=== PATIENT | female | born 1940 | race Caucasian/White ===

== ENCOUNTER 2016-11-03 06:14 | Day surgery (SDC) | payer MEDICARE ==
[2016-11-03] VITALS (11 sets, daily range): BP systolic 119–151; BP diastolic 80–90; PULSE 63–106; RESP 17–22; TEMP 97.6–98.2; O2SAT 94–100
[~2016-11-03] VITALS: Ht 160 cm; Wt 74.1 kg
[2016-11-03] MEDS ORDERED: ONCETAB7 PO (07:08)
[2016-11-03] MEDS ORDERED: HYDR-3288 PO (07:08)
[2016-11-03] MEDS ORDERED: OCUVTAB4 PO (07:08)
[2016-11-03] MEDS ORDERED: METO50TA11 PO (07:08)
[2016-11-03] MEDS ORDERED: PRAV20TA2 PO (07:08)
[2016-11-03] MEDS ORDERED: XARE20TA PO (07:08)
[2016-11-03] MEDS ORDERED: TRIA37.53 PO (07:08)
[2016-11-03] MEDS ORDERED: HYDR12.57 PO (07:08)
[2016-11-03] MEDS ORDERED: COQ-50CA2 PO (07:09)
[2016-11-03 07:15] LABS: AUTOMATED NEUTROPHIL # 2.7 TH/MM3 (1.8-7.7); BASOPHIL # 0.1 TH/MM3 (0-0.2); BASOPHIL % 0.9 % (0.0-2.0); EOSINOPHIL # 0.4 TH/MM3 (0-0.4); EOSINOPHIL % 6.3 % (0.0-4.0); HEMATOCRIT 43.1 % (35.0-46.0); HEMO FLAGS DIFF FINAL; LYMPH % 40.5 % (9.0-44.0); LYMPHOCYTE # 2.6 TH/MM3 (1.0-4.8); MEAN CELL VOLUME 91.6 FL (80.0-100.0); MEAN CORPUSCULAR HEMOGLOBIN 30.8 PG (27.0-34.0); MEAN CORPUSCULAR HGB CONC 33.6 % (32.0-36.0); MONO % 9.4 % (0.0-8.0); NEUT % 42.9 % (16.0-70.0); PLATELET COUNT 245 TH/MM3 (150-450); RED BLOOD COUNT 4.71 MIL/MM3 (4.00-5.30); RED CELL DISTRIBUTION WIDTH 13.1 % (11.6-17.2); WHITE BLOOD COUNT 6.4 TH/MM3 (4.0-11.0)
[2016-11-03 07:28] LABS: BICARBONATE 23.8 MEQ/L (21.0-32.0); POTASSIUM 3.3 MEQ/L (3.5-5.1)
[2016-11-03 07:29] LABS: APTT (PATIENT) 30.5 SEC (24.3-30.1); PROTHROMBIN TIME - PATIENT 11.5 SEC (9.8-11.6)
[2016-11-03] MEDS ORDERED: HEPARIN-NS/PF INJ 2,000 ML ONE (07:31)
[2016-11-03] MEDS ORDERED: ISOPROTERENOL HCL 1 MG/5 ML AMP ONE (07:34)
[2016-11-03] MEDS ORDERED: MIDAZOLAM HCL 2 MG/2 ML VIAL ONE (07:35)
[2016-11-03] MEDS ORDERED: METOPROLOL TARTRATE 25 MG TAB PO PRN (08:30)
[2016-11-03] MEDS ORDERED: LORazepam 1 MG TAB SL SCH (08:30)
[2016-11-03] MEDS ORDERED: CHLORHEXIDINE GLUCONATE 2 % 1 PACK (2 CLOTHS) TOPICAL PRN (08:30)
[2016-11-03] MEDS ORDERED: POVIDONE IODINE 5% (ANTISEPSIS KIT) 4 APPLICATIONS EACH NARE PRN (08:30)
[2016-11-03] MEDS ORDERED: LACTATED RINGER'S 1000 ML IV PRN (08:30)
[2016-11-03] MEDS ORDERED: SODIUM CHLORID 0.9% 500 ML IV PRN (08:30)
[2016-11-03] MEDS ORDERED: INSULIN HUMAN REGULAR 1,000 UNITS/10 ML VIAL SQ PRN (08:30)
--- NOTE | 2016-11-03 08:46 | CATHPROC ---
[facility] A/S HIS Report Study Information Study Number Admission Scheduled Start Study Start [id number] Nov 03 2016 6:14AM 11/03/2016 Nov 03 2016 6:54AM [place] [facility] Electrophysiology Study Admit Source Facility Department Other [facility] - Quality Control Engineering Technician Physician and Clinical Staff Initial Lisandro Good Baler Anali Riley,RT(R) Baler Alicia Wiggins,RT(R) TECH2 Other Anesthesia, RHEOLOGIST Recorder Susana Doran,CANELO Recorder Ritu Mullins,JORDANRN Scrub Leslie Feng,ZANE Procedures Performed Procedure Ablation Procedure Equipment Time Registered Nurse Post Partum Description Size Mfg Part Number Used/Scraped BIOSENSE KATE CATHETER, CELSIUS DS, 8MM, F [id number] 06:57 FR 7 Used INC. TYPE QUAD *[id number] 06:55 [employer] PACK, CCL CUSTOM * Used *[id number] 06:55 or[employer]ics PACER BETANCOURT, LIMB * 2530 *[id number] Used [id number] 06:55 [employer] MEDICAL BLANKET,WARM AIR CCL * Used *[id number] 06:56 [employer] MEDICAL CATHETER, JSN, QUAD FR 5 Used *[id number] 06:56 [employer] MEDICAL CATHETER, JSN, QUAD FR 5 Used *[id number] 06:56 [employer] MEDICAL CATHETER, JSN, QUAD FR 5 Used *[id number] 06:56 [employer] MEDICAL CATHETER, JSN, QUAD FR 5 Used *[id number] 06:55 [employer]EE[employer] MEDICAL ELECTRODE KIT, KD X SURFACE * [id number] Used [id number] 06:56 [employer] MEDICAL SHEATH, EPS, FR5 FAST CATH FR 5 Used *[id number] [id number] 06:56 [employer] MEDICAL SHEATH, EPS, FR5 FAST CATH FR 5 Used *[id number] [id number] 06:56 [employer] MEDICAL SHEATH, EPS, FR5 FAST CATH FR 5 Used *[id number] 06:56 [employer] MEDICAL SHEATH, EPS, FR6 FAST CATH FR [id number] Used 06:56 [employer] MEDICAL SHEATH, EPS, FR8 FAST CATH FR 8 [id number] Used [facility] PAD, ELECTROSURGICAL 06:55 * [id number] *[id number] Used SURGICAL GROUNDING (BLUE) History: Allergies Allergy Reaction Sulfa (Sulfonamide Antibiotics) ITCH peanut soybean SWELLING History: Risk Factors Hypertension Dyslipidemia Yes Yes Labs Hgb (g/dl) Hct (%) RBC (MIL/MM3) WBC (l/cumm) Platelets (thousands) 11.60-17.00 35.00-51.00 4.00-5.90 4.00-11.00 150.00-450.00 14.0 43 4.1 6.4 245 Glucose (mg/dl) Creatinine (mg/dl) 74.00-106.00 0.50-1.30 103 0.9 Na (meq/l) K (meq/l) Cl (meq/l) CO2 (mmol/L) Ca (mg/dl) 136.00-145.00 3.50-5.10 98.00-107.00 21.00-32.00 8.50-10.10 132 3.3 95 23.8 9 Medication Medication Total Dose (Bolus/Oral) Medication Total Dosage/Unit 1% XYLOCAINE 40 mL Medications (Bolus/Oral) Medication Time Given Dosage/Unit Administered By Reason 1% XYLOCAINE 11/03/2016 8:13:02 AM 20 mL Lisandro Manuel For pain 20 mL 1% XYLOCAINE given in lab by Lisandro Manuel in Left Groin via Subcutaneous. Ordered by Jasmeet Manuel. Reason: For pain. 1% XYLOCAINE 11/03/2016 8:17:49 AM 20 mL Lisandro Manuel For pain 20 mL 1% XYLOCAINE given in lab by Lisandro Manuel in Right Groin via Subcutaneous. Ordered by Xochitl Manuel. Reason: For pain. Medication (Drip) Medication Time Given Dosage/Unit Concentration/Unit Diluent (ml) Solution ISUPREL 11/03/2016 8:30:00 AM 10 mcg/min 1 mg 250 NaCl .9 10 mcg/min ISUPREL given in lab by Anesthesia, RHEOLOGIST in Right Antecubital via Peripheral IV. Pump/Drip Flow = 150 ml/hr using NaCl .9 with a concentration of 1 mg in 250 ml. Ordered by Lisandro Manuel. Initial Case Assessment Cardiovascular HR NIBP Chest Pain 60 144/69 0 Edema Present Skin color Skin None Normal Warm Dry Circulatory - Right Pulses Dorsalis Pedis 2 Scale (0,1,2,3,4,d) Circulatory - Left Pulses Dorsalis Pedis 2 Scale (0,1,2,3,4,d) Neurological State Oriented to time-place- Alert Moves all extremities person Respiration - General Respiration Rate SpO2 (%) (B/min) 18 94 Final Case Assessment Cardiovascular HR NIBP Chest Pain 88 113/69 0 Edema Present Skin color Skin None Normal Warm Dry Circulatory - Right Pulses Dorsalis Pedis 2 Scale (0,1,2,3,4,d) Circulatory - Left Pulses Dorsalis Pedis 2 Scale (0,1,2,3,4,d) Neurological State Oriented to time-place- Alert Moves all extremities person Respiration - General Respiration Rate SpO2 (%) (B/min) 20 96 Chronological Log Time Study Chronological Log 7:25:52 Patient arrived via Bed. 7:25:53 Patient Name, D.O.B, / Armband Verified By R.N. 7:25:53 Consent signed by the physician and the patient and verified by the Quality Control Engineering Technician staff. 7:25:54 Pre-op and post- op instructions given; patient acknowledges understanding of instructions. 7:25:54 Verbal Stimulation=2 Physical Stimulation=2 Airway=2 Respiration=2 TOTAL=8. (0=absent, 1=li mited, 2=present) 7:26:04 Anesthesia at bedside. Assumes care of patient. Jeff RHEOLOGIST 7:26:05 Patient has been NPO for More than 6Hrs. 7:26:06 Skin Breakdown- none per pt 7:26:13 Patient Warmer Placed on the Table. 7:26:13 Disposable Defibrillator Pads Placed On Patient. 7:26:14 Kay Prominences Protected 7:26:16 A # 20 IV was noted in the Antecubital (right). Grade = 0 0.9ns kvo 7:26:17 A # 20 IV was noted in the Antecubital (left). Grade = 0 0.9ns kvo 7:26:20 History and physical on the chart. Assessment: Initial Case, HR=60 BPM, SHWV=628/69 mmhg, Chest Pain=0, Edema=None, Color=Normal, Skin = Warm, Dry Right Pulses: Etienne Ped=2 7:27:00 Left Pulses: Etienne Ped=2 Neurological: State=Alert, Ox3, VELASQUEZ Respiration: Resp=18 B/min, SpO2=94 % 7:33:53 Table restraints applied according to hospital policy 7:40:53 Right groin prepped with 2% chlorhexidine, and with a 3 min. waiting time. 7:40:58 Left groin prepped with 2% chlorhexidine, and with a 3 min. waiting time. 7:57:27 Reference ECG taken 7:58:00 MD paged 8:08:38 MD arrived. 8:08:45 Immediate Presedation assesment performed by physician. Time Out. Correct patient, procedure, procedure equipment, site and side verified with physician present. Time 8:12:16 concurred by MD, individual staff and RHEOLOGIST. Time Out #2 - Consents verified, patient in correct position, all results are labled and display ed, safety precautions 8:12:19 taken, antibiotics administered. Time out concurred by MD, individual staff and RHEOLOGIST in procedur e 8:12:21 Case Start 20 mL 1% XYLOCAINE given in lab by Lisandro Manuel in Left Groin via Subcutaneous. Ordered by Lisandro Duran. 8:13:02 Reason: For pain. 8:13:48 Vascular access was obtained in the Fem Vein (left). 8:13:53 Vascular access was obtained in the Fem Vein (left). 8:13:54 Vascular access was obtained in the Fem Vein (left). 8:13:59 A SHEATH, EPS, FR5 FAST CATH FR 5 was advanced into the Fem Vein (left) using the Percutaneo us technique. 8:14:10 A SHEATH, EPS, FR5 FAST CATH FR 5 was advanced into the Fem Vein (left) using the Percutaneo us technique. 8:14:11 A SHEATH, EPS, FR5 FAST CATH FR 5 was advanced into the Fem Vein (left) using the Percutaneo us technique. 20 mL 1% XYLOCAINE given in lab by Lisandro Manuel in Right Groin via Subcutaneous. Ordered by Lisandro Quijano. 8:17:49 Reason: For pain. 8:18:00 Vascular access was obtained in the Fem Vein (right). 8:18:04 Vascular access was obtained in the Fem Vein (right). 8:18:09 A SHEATH, EPS, FR6 FAST CATH FR 6 was advanced into the Fem Vein (right) using the Percutane ous technique. 8:18:17 A SHEATH, EPS, FR8 FAST CATH FR 8 was advanced into the Fem Vein (right) using the Percutane ous technique. A CATHETER, JSN, QUAD FR 5 was advanced vis Fem Vein (left) and placed in the HIS. Placement was visually 8:19:04 confirmed under fluoroscopy. A CATHETER, JSN, QUAD FR 5 was advanced vis Fem Vein (left) and placed in the HRA. Placement was visually 8:19:18 confirmed under fluoroscopy. A CATHETER, JSN, QUAD FR 5 was advanced vis Fem Vein (left) and placed in the RVA. Placement was visually 8:19:30 confirmed under fluoroscopy. A CATHETER, JSN, QUAD FR 5 was advanced vis Fem Vein (right) and placed in the CS. Placement was visually 8:19:46 confirmed under fluoroscopy. A CATHETER, KEAGANUS DS, 8MM, F TYPE QUAD FR 7 was advanced vis Fem Vein (right) and placed in th e Isthmus. 8:23:38 Placement was visually confirmed under fluoroscopy. 8:24:30 Ablation begun. 8:29:00 Ablation completed. 10 mcg/min ISUPREL given in lab by Anesthesia, RHEOLOGIST in Right Antecubital via Peripheral IV. Pump /Drip Flow = 150 8:30:00 ml/hr using NaCl .9 with a concentration of 1 mg in 250 ml. Ordered by Lisandro Manuel. 8:39:12 Isuprel gtt turned off. 8:39:36 Catheters removed. 8:40:[address] hooked to saline. 8:40:40 Ablation procedure performed: Aflutter. 8:40:49 EP Procedure was performed. 8:41:07 Sterile dressing applied to site 8:41:45 No case complications noted. 8:41:47 Cine recording checked. 8:41:50 Holding Area notified of successful intervention. 8:41:52 Bedside Report will be given. 8:41:55 Defibrillator and ground pads removed. Skin intact. Assessment: Final Case, HR=88 BPM, HNAV=381/69 mmhg, Chest Pain=0, Edema=None, Color=Normal, S kin = Warm, Dry Right Pulses: Etienne Ped=2 8:42:06 Left Pulses: Etienne Ped=2 Neurological: State=Alert, Ox3, VELASQUEZ Respiration: Resp=20 B/min, SpO2=96 % 8:42:30 Case End 8:55:00 Patient moved to stretcher and transported to [facility] in stable condition. End Study - Contrast Media Used In Study Contrast Total Opened (mL) Total Used (mL) Total Wasted (mL) Unspecified 0 0 0 End Study - Maximum Contrast Load Max Contrast Load (mL) 410.6 End Study - Radiation Exposure Fluoro Time (minutes) 1.8 End Study - Patient Disposition Complications Transferred To Interventional Outcome No Telemetry Bed successful
[2016-11-03] MEDS ORDERED: BACITRACIN OINT 0.9 GM PKT TOP ONE (10:15)
[2016-11-03] MEDS ORDERED: LIDOCAINE HCL 1% 50 ML VIAL INFIL PRN (10:15)
[2016-11-03] MEDS ORDERED: ONDANSETRON HCL 4 MG/2 ML VIAL IV PRN (10:15)
[2016-11-03] MEDS ORDERED: ATROPINE SULFATE 1 MG/ML VIAL IV PRN (10:15)
[2016-11-03] MEDS ORDERED: METOCLOPRAMIDE HCL 10 MG/2 ML VIAL IV PRN (10:15)
[2016-11-03] MEDS ORDERED: LORazepam 2 MG/ML VIAL IV PRN (10:15)
[2016-11-03] MEDS ORDERED: oxyCODONE/ACETAMINOPHEN 5 MG/325 MG TAB PO PRN (10:15)
[2016-11-03] MEDS ORDERED: SODIUM CHLOR 0.9% 250 ML INJ 250 ML IV PRN (10:15)
--- NOTE | 2016-11-03 12:43 | MA ---
cc: RONAL GILLETTE M.D. DATE 11/03/2016 PROCEDURE PERFORMED Electrophysiology study, CS cannulation, 3-D mapping, radiofrequency ablation of atrial flutter. INDICATIONS Mrs. Euceda is a 75-year-old female with atrial fibrillation symptomatic on anticoagulation referred for electrophysiology study and ablation. The risks, the nature and the benefit of the procedure are clearly stated to her. The risks include pneumothorax, cardiac perforation, stroke, need for open heart surgery and even . The patient understood and agreed to proceed. PROCEDURE After written informed consent was obtained, the patient was brought to the EP lab where she was prepped and draped in the usual sterile fashion. Conscious sedation was initiated and maintained throughout the procedure by anesthesiologist. Once sedation verified, the right and left inguinal area was anesthetized with 2% Xylocaine. Using modified Seldinger technique, the left femoral vein was cannulated on three occasions and three guidewires were advanced over the wire. Three 5-Nigerian Hemaquets were advanced. Then the right femoral vein was cannulated on two occasions and two guidewire were advanced over the wire, a 6 and an 8-Nigerian Hemaquet were advanced. Then under fluoroscopic guidance through the 5 and 6-Nigerian Hemaquet, four 5-Nigerian Les curved quadripolar electrophysiology catheters were advanced and positioned on the His, upper right atrium, coronary sinus and right ventricular apex. The patient was in atrial flutter. was performed. It was positive. Then through the 8-Nigerian Hemaquet, a Cordis Dubois F curve 8 mm mapping radiofrequency ablation catheter was advanced. Using [employer] endocardial solution mapping system, a two-dimensional configuration of the right atrium was obtained. Then the catheter was at the critical isthmus. Radiofrequency energy was delivered. During ablation, cycle length increased from 240-275 and subsequently the patient converted into sinus rhythm. Further burn was delivered in the area. Then atrial pacing protocol was repeated again. No tachyarrhythmia was induced. I did pace at the proximal pole of the coronary sinus up to 220 milliseconds. No tachyarrhythmia was induced. Then Isuprel was initiated. Atrial pacing protocol was repeated again. No tachyarrhythmia was induced. Post Isuprel, no tachyarrhythmia was induced. At that point, procedure was complete. All catheters were removed. The patient is going to be transferred to the recovery room. No incident report. The patient tolerated procedure. Blood loss minimal. 1. Electrocardiogram: At baseline, the patient was in atrial Flutter. Postprocedure, the patient is in sinus rhythm. 2. Basic interval: Base cycle length was 780 milliseconds. Fluttery cycle length was around 240 milliseconds. Post ablation it was around 980 milliseconds. 3. Atrial pacing protocol: No tachyarrhythmia was induced post Ablation. 4. Ventricular pacing protocol: No tachyarrhythmia was induced. 5. Tachyarrhythmia: Atrial flutter was mapped, entrained and ablated. Ablation was successful. CONCLUSION Successful electrophysiology study, mapping and radiofrequency ablation of atrial flutter. COMMENT AND RECOMMENDATIONS The patient is going to be transferred to the recovery room. He will be observed and when stable can be discharged home. MD CRISTOPHER Valdez/VALDEZ /11:58 AM /12:29 PM
[2016-11-03] MEDS: oxyCODONE/ACETAMINOPHEN 5 MG/325 MG TAB PO PRN ×3 (14:16→23:03)
--- NOTE | 2016-11-03 15:07 | EKG ---
Date Performed: 11/03/2016 Time Performed: 07:03:22 PTAGE: 75 years EKG: Atrial flutter with slow ventricular response. Septal T wave changes are nonspecific Low QR S voltages in precordial leads Abnormal ECG NO PREVIOUS TRACING DOCTOR: Honey Jay Interpretating Date/Time 11/03/2016 15:07:35
[2016-11-03] MEDS ORDERED: HYDROmorphone HCL PF 1 MG/ML VIAL IV PUSH ONE (16:00)
[2016-11-03] MEDS: RIVAROXABAN 20 MG TAB PO SCH (18:11)
[2016-11-03] MEDS: TRIAMTERENE/HCTZ 37.5 MG/25 MG CAP PO SCH (21:22)
[2016-11-04] VITALS (21 sets, daily range): BP systolic 101–152; BP diastolic 62–89; PULSE 88–110; RESP 18–20; TEMP 97.9–100.2; O2SAT 92–99
[2016-11-04] MEDS: oxyCODONE/ACETAMINOPHEN 5 MG/325 MG TAB PO PRN ×3 (03:40→11:57)
[2016-11-04 07:07] LABS: INTERNATIONAL NORMALIZED RATIO 1.5 RATIO; PROTHROMBIN TIME - PATIENT 17.4 SEC (9.8-11.6)
--- NOTE | 2016-11-04 08:43 | PD.CARD.PN ---
Subjective Subjective Remarks Feels okay. Objective Medications Current Medications Medications (Trade) Dose Ordered Sig/Gabby Route Start Time Stop Time Status Last Admin Lactated Ringer's 1,000 ml @ 30 mls/hr Q24H PRN IV 11/03/16 08:30 11/06/16 08:29 Sodium Chloride 500 ml @ 30 mls/hr [id number] PRN IV 11/03/16 08:30 11/06/16 08:29 (Lopressor) 25 mg PROBE OPERATOR PRN PO 11/03/16 08:30 11/06/16 08:29 (Betadine 5% Antisepsis Kit) 1 applic PROBE OPERATOR PRN EACH NARE 11/03/16 08:30 11/06/16 08:29 (Chlorhexidine 2% Cloth) 3 pack PROBE OPERATOR PRN TOPICAL 11/03/16 08:30 11/06/16 08:29 (NovoLIN R INJ) See Protocol Table ... PROBE OPERATOR PRN SQ 11/03/16 08:30 11/06/16 08:29 Sodium Chloride 500 ml @ 30 mls/hr [id number] IV 11/03/16 08:30 (Ativan) 1 mg PROBE OPERATOR SL 11/03/16 08:30 11/06/16 08:29 (Percocet 5-325 Mg) 1 tab Q4H PRN PO 11/03/16 10:15 (Percocet 5-325 Mg) 2 tab Q4H PRN PO 11/03/16 10:15 11/04/16 07:34 (Ativan Inj) 0.5 mg UNSCH PRN IV 11/03/16 10:15 11/04/16 10:14 (Atropine Inj) 0.5 mg UNSCH PRN IV 11/03/16 10:15 Sodium Chloride 250 ml @ 500 mls/hr ONCE PRN IV 11/03/16 10:15 11/04/16 10:14 (Reglan Inj) 10 mg Q4H PRN IV 11/03/16 10:15 (Zofran Inj) 4 mg Q4H PRN IV 11/03/16 10:15 11/04/16 07:26 (Xylocaine 1% Inj (50 ml)) 10 ml UNSCH PRN INFIL 11/03/16 10:15 11/04/16 10:14 (Toprol Xl) 50 mg DAILY PO 11/04/16 09:00 (Pravachol) 20 mg DAILY PO 11/04/16 09:00 (Xarelto) 20 mg DAILY PO 11/03/16 18:00 11/03/16 18:11 (Dyazide 37.5-25 Mg) 1 cap BID PO 11/03/16 21:00 11/03/16 21:22 (Ocuvite) 1 tab DAILY PO 11/04/16 09:00 (Theragran) 1 tab DAILY PO 11/04/16 09:00 Vital Signs / I&O Vital Signs Date Time Temp Pulse Resp B/P (MAP) Pulse Ox O2 Delivery O2 Flow Rate FiO2 11/04/16 07:23 108 20 101/63 (76) 95 11/04/16 03:46 98.6 99 20 152/85 (107) 94 11/04/16 03:00 94 11/04/16 02:00 94 11/04/16 01:00 98 11/04/16 00:00 100 11/03/16 23:03 98.0 102 20 119/80 (93) 95 11/03/16 23:00 100 11/03/16 22:00 102 11/03/16 21:00 98 11/03/16 20:00 98.2 106 22 136/81 (99) 94 11/03/16 20:00 104 11/03/16 19:00 106 11/03/16 16:00 100 18 128/83 (98) 100 11/03/16 16:00 102 11/03/16 15:00 100 11/03/16 14:33 97.6 100 20 151/84 (106) 94 11/03/16 14:30 106 11/03/16 09:26 94 Room Air I/O 11/03/16 11/03/16 11/03/16 11/04/16 11/04/16 11/04/16 07:00 15:00 23:00 07:00 15:00 23:00 Intake Total 240 ml Output Total 600 ml Balance -360 ml Intake Oral 240 ml Output Urine Total 600 ml Physical Exam GENERAL: Well-nourished, well-developed patient. SKIN: Warm and dry. Groin site soft with mild bruising at Left thigh.. HEAD: Normocephalic. EYES: No scleral icterus. No injection or drainage. NECK: Supple, trachea midline. No JVD or lymphadenopathy. CARDIOVASCULAR: Regular rate and rhythm without murmurs, gallops, or rubs. RESPIRATORY: Breath sounds equal bilaterally. No accessory muscle use. GASTROINTESTINAL: Abdomen soft, non-tender, nondistended. EXTREMITIES: No cyanosis, or edema. NEUROLOGICAL: Awake, alert, and oriented x 3. Non-focal. Laboratory Laboratory Tests Test 11/04/16 05:15 Prothrombin Time 17.4 SEC Prothromb Time International Ratio 1.5 RATIO Assessment and Plan Problem List: (1) Atrial flutter ICD Codes: I48.92 - Unspecified atrial flutter Status: Acute Plan: Normal sinus rhythm on telemetry. Continue Xarelto. (2) S/P ablation of atrial flutter ICD Codes: Z98.890 - Other specified postprocedural states; Z86.79 - Personal history of other diseases of the circulatory system Status: Resolved Plan: Remained in sinus rhythm overnight status post atrial flutter ablation. Stable for discharge home per my discussion with Dr. Manuel. Follow up with him in 3 weeks. Contact office for any questions or concerns. Addendum: After initial evaluation, patient sat up slightly and developed a recurrent left groin bleed. Discharge held, Dr. Manuel notified. He will see the patient later today. Problem Qualifiers (1) Atrial flutter: Qualified Codes: I48.3 - Typical atrial flutter Vandana Friedman Nov 04, 2016 08:43
[2016-11-04] MEDS: MULTIVITAMIN TAB PO SCH (09:00)
[2016-11-04] MEDS ORDERED: NON-FORMULARY DRUG (Coenzyme Q10 (Ubidecarenone) (Coq-10) 100 MG) PO SCH (09:00)
[2016-11-04] MEDS: RIVAROXABAN 20 MG TAB PO SCH (09:00)
[2016-11-04] MEDS: MULTIVITAMIN-OPHTHALMIC 1 TAB PO SCH (09:53)
[2016-11-04] MEDS: TRIAMTERENE/HCTZ 37.5 MG/25 MG CAP PO SCH ×2 (09:54→21:40)
[2016-11-04] MEDS: PRAVASTATIN SOD 20 MG TAB PO SCH (09:54)
[2016-11-04] MEDS: METOPROLOL SUCCINATE 50 MG EXTENDED RELEASE TAB PO SCH (09:55)
--- NOTE | 2016-11-04 11:58 | RADRPT ---
EXAM DATE/TIME: 11/04/2016 11:17 [place] COMPARISON: No previous studies available for comparison. INDICATIONS : Swelling in left groin. MEDICAL HISTORY : Hypertension. Pre-diabetic. Skin cancer. SURGICAL HISTORY : Cardiac catheterization, 11/03/16. ENCOUNTER: Initial ACUITY: 1 day PAIN SCORE: 8/10 LOCATION: Left groin. AREA EVALUATED: Left groin. FINDINGS: Large heterogeneous left groin hematoma measuring up to 12 cm in dimension. No evidence of pseudoaneu rysm. Visualized common femoral vessels are patent. CONCLUSION: Large groin hematoma. No pseudoaneurysm Lázaro Oh MD on November 04, 2016 at 11:55 Board Certified Radiologist. This report was verified electronically.
--- NOTE | 2016-11-04 12:23 | PD.VS.CON ---
History of Present Illness Chief Complaint: L groin hematoma Consult Requested by: Dr. Manuel History of Present Illness 75 yo lady with a fib who underwent procedure yesterday with cardiology EP. Overnight had pain and has persisted this morning - pain in upper leg and back. Duplex shows no PSA. Unclear access site (A/V). No motor dysfunction of L foot Past/Family/Social History Past Medical History DM A fib HTN XOL Past Surgical History ablation yesterday Social History non smoker Family History NC Home Medications Reported Medications Coenzyme Q10 (Ubidecarenone) (Coq-10) 50 Mg Cap, 100 MG PO DAILY 11/03/16 Rivaroxaban (Xarelto) 20 Mg Tab, 20 MG PO DAILY for Blood Clot Prevention, TAB 0 Refills 11/03/16 Triamterene-Hydrochlorothiazide (Triamterene-Hydrochlorothiazide) 37.5-25 Mg Cap , 1 CAP PO BID, #30 CAP 0 Refills 11/03/16 Multiple Vitamins W/ Minerals (Preservision Areds) 1 Tab, 1 TAB PO DAILY for Nutritional Supplement, TAB 0 Refills 11/03/16 Pravastatin (Pravastatin) 20 Mg Tab, 20 MG PO DAILY for Cholesterol Management, #30 TAB 0 Refills 11/03/16 Multivitamin (Once Daily) 1 Each Tablet, 1 MG PO DAILY 11/03/16 Metoprolol Succinate ER 24 HR (Metoprolol Succinate ER 24 HR) 50 Mg Tab, 50 MG PO DAILY, #30 TAB 0 Refills 11/03/16 Hydrocodone-Acetaminophen ([place]) 7.5-325 mg Tab, 1 TAB PO Q4H Y for PAIN, TAB 0 Refills 11/03/16 Hydrochlorothiazide (Hydrochlorothiazide) 12.5 Mg Cap, PO DAILY, #30 CAP 0 Refills 11/03/16 Coded Allergies: Sulfa (Sulfonamide Antibiotics) (Verified Allergy, Severe, ITCH, 11/03/16) peanut (Verified Allergy, Unknown, 11/03/16) soybean (Verified Allergy, Unknown, SWELLING, 11/03/16) Review of Systems Cardiovascular: DENIES: Chest pain Musculoskeletal: COMPLAINS OF: Back pain Physical Exam Vitals/I&O Date Time Temp Pulse Resp B/P (MAP) Pulse Ox O2 Delivery O2 Flow Rate FiO2 11/04/16 07:23 108 20 101/63 (76) 95 11/04/16 03:46 98.6 99 20 152/85 (107) 94 11/04/16 03:00 94 11/04/16 02:00 94 11/04/16 01:00 98 11/04/16 00:00 100 11/03/16 23:03 98.0 102 20 119/80 (93) 95 11/03/16 23:00 100 11/03/16 22:00 102 11/03/16 21:00 98 11/03/16 20:00 98.2 106 22 136/81 (99) 94 11/03/16 20:00 104 11/03/16 19:00 106 11/03/16 16:00 100 18 128/83 (98) 100 11/03/16 16:00 102 11/03/16 15:00 100 11/03/16 14:33 97.6 100 20 151/84 (106) 94 11/03/16 14:30 106 11/04/16 11/04/16 11/04/16 06:59 14:59 22:59 Intake Total 240 ml Output Total 600 ml Balance -360 ml Neuro: alert, lying in bed with mild distress but conversant HEENT: NC/AT, anicteric sclera Neck: no JVD Heart: reg rate Lungs: nonlabored breathing Abdomen: nontender, no masses Vascular: palpable L EIA/ROAD OILER pulse good motor strength B LE Extremities: L groin posterior hematoma, slightly firm no skin threat Laboratory Tests Test 11/04/16 05:15 Prothrombin Time 17.4 Prothromb Time International Ratio 1.5 Assessment and Plan Plan likely groin hematoma - no evidence of L LE malperfusion and by report, no PSA on duplex 1. I recommend stat CBC and CTA to toes 2. Serial Hct 3. Warm compresses 4. BR for now. Juan Carlos Alfred MD Nov 04, 2016 12:23
[2016-11-04] MEDS ORDERED: IOHEXOL 350 MG/ML 10 ML VIAL (for RAD DIAG) IVCONTRAST ONE (13:15)
[2016-11-04 14:34] LABS: HEMATOCRIT 27.6 % (35.0-46.0); MEAN CELL VOLUME 93.1 FL (80.0-100.0); MEAN CORPUSCULAR HEMOGLOBIN 31.1 PG (27.0-34.0); MEAN CORPUSCULAR HGB CONC 33.4 % (32.0-36.0); PLATELET COUNT 187 TH/MM3 (150-450); RED BLOOD COUNT 2.96 MIL/MM3 (4.00-5.30); RED CELL DISTRIBUTION WIDTH 13.2 % (11.6-17.2); REVIEW FLAG FINAL; WHITE BLOOD COUNT 16.2 TH/MM3 (4.0-11.0)
--- NOTE | 2016-11-04 15:09 | RADRPT ---
EXAM DATE/TIME: 11/04/2016 13:07 [facility] COMPARISON: No previous studies available for comparison. INDICATIONS : Lower leg pain, pseudoaneurysm. IV CONTRAST: 99 cc Omnipaque 350 (iohexol) IV RADIATION DOSE: 10.63 CTDIvol (mGy) MEDICAL HISTORY : Hypertension. Diabetes mellitus type 2. Skin cancer, Aflutter. SURGICAL HISTORY : None. Bilateral groins used for cardiac ablation. ENCOUNTER: Initial ACUITY: 1 day PAIN SCALE: 4/10 LOCATION: Bilateral lower leg region. TECHNIQUE: Volumetric scanning was performed using a multi-row detector CT scanner. The data was post processed with a variety of visualization algorithms including full volume maximum intensity projection, multi -planar sliding thin slab reformation, curved planar reformation, and surface rendering techniques. Using automated exposure control and adjustment of the mA and/or kV according to patient size, radiat ion dose was kept as low as reasonably achievable to obtain optimal diagnostic quality images. DICO M format image data is available electronically for review and comparison. FINDINGS: Aorta/inflow: Scattered calcified and noncalcified atheromatous plaque throughout the aorta and inflow vessels with out a hemodynamically significant stenosis. No aneurysmal change. The celiac, SMA, JENNIFER, and renal art eries are patent. A single renal artery supplies the left kidney. 2 renal arteries supply the right k idney. Right lower extremity: Scattered calcified atheromatous plaque involving the outflow and runoff vessels without a hemodynami brandi significant stenosis. There is variant anatomy with the anterior tibial artery arising from the popliteal artery at the level of the knee joint. 3 vessel runoff to the foot. Left lower extremity: Scattered calcified atheromatous plaque involving the outflow and runoff vessels without a hemodynami brandi significant stenosis. 3 vessel runoff to the foot. Other structures: Hematoma is seen involving the left groin and proximal thigh. This is a mixture of linear subcutaneou s stranding as well as intramuscular hematoma. The muscles involved are the gracilis, abductor ruy , and abductor longus. This displaces the vessels anteriorly. No pseudoaneurysm. No arteriovenous mal formation. A fracture is seen involving the pubic symphysis on the right. This is subacute to chronic . Bilateral sacral insufficiency fractures. These are felt chronic. Hepatic steatosis. Colonic divert iculosis. No acute inflammation appreciated. CONCLUSION: 1. There is a mixture of subcutaneous and intramuscular hematoma involving the left thigh as detailed above. It is more intramuscular in nature. Muscles involved include the gracilis, abductor longus, a nd abductor ruy. No pseudoaneurysm. 2. Scattered calcified plaque but patent inflow, outflow, and runoff bilaterally. 3. Hepatic steatosis. 4. Subacute to chronic sacral insufficiency fractures as well as right pubis fracture. Arden Gallagher Jr., MD on November 04, 2016 at 14:55 Board Certified Radiologist. This report was verified electronically.
--- NOTE | 2016-11-04 17:20 | EKG ---
Date Performed: 11/04/2016 Time Performed: 04:52:56 PTAGE: 75 years EKG: Sinus rhythm ST junctional depression is nonspecific Compared to previous tracing, the patient is no longer in at rial flutter Borderline ECG PREVIOUS TRACING : 11/03/2016 07.03 DOCTOR: Alicia Rosales Interpretating Date/Time 11/04/2016 17:19:33
[2016-11-04] MEDS: SODIUM CHLORID 0.9% 500 ML INJ 500 ML IV SCH (17:50)
[2016-11-04] MEDS ORDERED: RIVAROXABAN 20 MG TAB PO SCH (18:00)
[2016-11-04 19:19] LABS: MEAN CELL VOLUME 92.7 FL (80.0-100.0); MEAN CORPUSCULAR HEMOGLOBIN 30.8 PG (27.0-34.0); MEAN CORPUSCULAR HGB CONC 33.2 % (32.0-36.0); PLATELET COUNT 211 TH/MM3 (150-450); RED BLOOD COUNT 3.12 MIL/MM3 (4.00-5.30); RED CELL DISTRIBUTION WIDTH 13.3 % (11.6-17.2); REVIEW FLAG FINAL; WHITE BLOOD COUNT 16.5 TH/MM3 (4.0-11.0)
[2016-11-05] VITALS (11 sets, daily range): BP systolic 105–132; BP diastolic 60–74; PULSE 79–130; RESP 18–20; TEMP 98.6–99.3; O2SAT 93–94
--- NOTE | 2016-11-05 07:24 | PD.VS.PN ---
Subjective Subjective/Hospital Course Pt feels better this morning. Leg much better subjectively. No complaints except back pain that she attributes to bedrest. CTA reviewed - intramuscular hematoma but no arterial extravasation. Objective Vitals/I&O Date Time Temp Pulse Resp B/P (MAP) Pulse Ox O2 Delivery O2 Flow Rate FiO2 11/05/16 06:00 97 11/05/16 05:00 99 11/05/16 04:00 98 11/05/16 03:00 85 11/05/16 03:00 99.3 105 18 108/60 (76) 93 11/05/16 00:00 98 11/04/16 23:00 100.1 100 20 125/62 (83) 92 11/04/16 23:00 88 11/04/16 22:00 100 11/04/16 21:00 110 11/04/16 20:00 98 11/04/16 19:00 100.2 101 18 129/69 (89) 95 11/04/16 19:00 100 11/04/16 16:00 89 11/04/16 16:00 98.2 96 20 109/69 (82) 96 11/04/16 15:00 106 11/04/16 14:00 99 11/04/16 13:00 102 11/04/16 12:00 100 11/04/16 11:00 110 11/04/16 11:00 97.9 106 20 129/89 (102) 99 11/04/16 10:00 104 11/04/16 09:00 100 11/04/16 08:00 100 11/04/16 07:23 108 20 101/63 (76) 95 11/05/16 11/05/16 11/05/16 07:00 15:00 23:00 Intake Total 480 ml Output Total 300 ml Balance 180 ml Physical Exam L thigh with posterior hematoma Skin not compromised Soft Good distal perfusion Laboratory Laboratory Tests Test 11/04/16 14:18 11/04/16 17:50 White Blood Count 16.2 16.5 Red Blood Count 2.96 3.12 Hemoglobin 9.2 9.6 Hematocrit 27.6 29.0 Mean Corpuscular Volume 93.1 92.7 Mean Corpuscular Hemoglobin 31.1 30.8 Mean Corpuscular Hemoglobin Concent 33.4 33.2 Red Cell Distribution Width 13.2 13.3 Platelet Count 187 211 Mean Platelet Volume 7.7 8.3 Imaging Last 48 hours Impressions Lower Extremity Ultrasound 11/04/16 0000 Signed Impressions: Service Date/Time: Friday, November 04, 2016 11:17 - CONCLUSION: Large groin hematoma. No pseudoaneurysm Lázaro Oh MD Aorta w/Runoff CTA 11/04/16 0000 Signed Impressions: Service Date/Time: Friday, November 04, 2016 13:07 - CONCLUSION: 1. There is a mixture of subcutaneous and intramuscular hematoma involving the left thigh as detailed above. It is more intramuscular in nature. Muscles involved include the gracilis, abductor longus, and abductor ruy. No pseudoaneurysm. 2. Scattered calcified plaque but patent inflow, outflow, and runoff bilaterally. 3. Hepatic steatosis. 4. Subacute to chronic sacral insufficiency fractures as well as right pubis fracture. Arden Gallagher Jr., MD Assessment and Plan Plan likely groin hematoma - no evidence of L LE malperfusion and by report, no PSA on duplex or CTA; stable Hct and exam benign 1. ok to liberalize activity 2. Ok to d/c today from vascular surgery standpoint 3. She has my phone numbers if the thigh changes at all Juan Carlos Alfred MD Nov 05, 2016 07:24
[2016-11-05] MEDS: oxyCODONE/ACETAMINOPHEN 5 MG/325 MG TAB PO PRN (08:11)
[2016-11-05] MEDS: MULTIVITAMIN-OPHTHALMIC 1 TAB PO SCH (10:04)
[2016-11-05] MEDS: MULTIVITAMIN TAB PO SCH (10:04)
[2016-11-05] MEDS: PRAVASTATIN SOD 20 MG TAB PO SCH (10:04)
[2016-11-05] MEDS: TRIAMTERENE/HCTZ 37.5 MG/25 MG CAP PO SCH (10:05)
[2016-11-05] MEDS: METOPROLOL SUCCINATE 50 MG EXTENDED RELEASE TAB PO SCH (10:07)
[2016-11-05] MEDS: SODIUM CHLORID 0.9% 500 ML INJ 500 ML IV SCH (10:30)
--- NOTE | 2016-11-05 14:06 | MH ---
cc: RONAL GILLETTE M.D. DATE OF ADMISSION: 11/03/2016 ADMITTING DIAGNOSIS: Mrs. Euceda is a 75-year-old female, atrial flutter was admitted on Wednesday for atrial flutter ablation. The procedure was successful. Subsequently yesterday morning developed a hematoma. CT scan was performed. There was no vascular history except hematoma. She was evaluate by vascular surgery. Currently stable. PHYSICAL EXAMINATION: IN GENERAL: Alert, fully oriented. VITAL SIGNS: Blood pressure 132/74, pulse 86, respiratory 18 Today. LUNGS: Ventilated. CARDIOVASCULAR SYSTEM: S1-S2 regular. ABDOMEN: Soft. No mass. EXTREMITIES: with some bluish discoloration in the left leg. LABORATORY DATA Hemoglobin is 9.6. Creatinine 0.94. ASSESSMENT AND PLAN: 1. The patient and is currently on metoprolol, Pravachol, a hydrochlorothiazide. 2. Percocet was given. She is going to be discharged home. She is stable and fully oriented in sinus rhythm. She is going to be discharged home and follow up as previously scheduled. 3. A Heart healthy diet recommended. 4. The patient also he advised to avoid lifting weight for the next week. MD CRISTOPHER Valdez/ivone /1:41 PM /2:00 PM
== END 2016-11-05 14:10 | disposition home or self-care (01) ==
LOC: HDIC 06:14 → HDOC 06:14 → HDIC 13:54 → HCIS 13:54 → HDOC 11-05 14:10
PROVIDERS: ATTEND Internal Medicine Interventional Cardiology
DX: I48.3 Typical atrial flutter (principal); I10 Essential (primary) hypertension; Z79.01 Long term (current) use of anticoagulants; E11.9 Type 2 diabetes mellitus without complications; K76.0 Fatty (change of) liver, not elsewhere classified; S30.1XXA Contusion of abdominal wall, initial encounter; Z85.828 Personal history of other malignant neoplasm of skin
CPT/HCPCS: 00537; 75635; 80048; 85025; 85027; 85610; 85730; 86850; 86900; 86901; 93005; 93613; 93623; 93653; 93926; C1730; C1732; C2630; J1170; J1644; J2250; J2405; J3010; Q9967

== ENCOUNTER 2016-11-20 12:05 | Emergency (ER) | payer MEDICARE ==
[~2016-11-20] VITALS: Ht 160 cm; Wt 72.0 kg
[~2016-11-20 12:05] MED LIST: COQ-50CA2 PO; HYDR-3288 PO; HYDR12.57 PO; METO50TA11 PO; OCUVTAB4 PO; ONCETAB7 PO; PRAV20TA2 PO; TRIA37.53 PO; XARE20TA PO
[2016-11-20 12:09] VITALS: BP 163/74; PULSE 87; RESP 18; TEMP 97.5; O2SAT 92
--- NOTE | 2016-11-20 13:13 | PD ---
HPI Chief Complaint: Cardiac Complaint Time Seen by Provider: 12:59 Travel History International Travel<30 days: No Contact w/Intl Traveler<30days: No Traveled to known affect area: No History of Present Illness HPI 75-year-old female complains of swelling left lower extremity. Patient status post cardiac ablation procedure done about 2 weeks ago. Patient developed a left groin hematoma postprocedure. Patient states that she had left groin pain and left thigh pain at that time. Patient was discharged home. Patient has been doing well however noticing increasing swelling of left lower extremity since then. Patient denies any headache. Patient denies any chest pain or shortness of breath. Patient denies abdominal pain. Patient denied any groin pain or left thigh pain. Patient denies any history of DVT or PE. Patient is on Xarelto. PFSH Past Medical History Cancer: Yes (SKIN) Cardiovascular Problems: Yes (AFLUTTER, HTN) Chest Pain: No Diabetes: Yes (PREDIABETIC) Gastrointestinal Disorders: No Glaucoma: No Hepatitis: No Hiatal Hernia: No Hypertension: Yes Respiratory: No Integumentary: No Thyroid Disease: No Social History Tobacco Use: No Substance Use: No Allergies-Medications (Allergen,Severity, Reaction): Coded Allergies: Sulfa (Sulfonamide Antibiotics) (Verified Allergy, Severe, ITCH, 11/20/16) peanut (Verified Allergy, Unknown, 11/20/16) soybean (Verified Allergy, Unknown, SWELLING, 11/20/16) Reported Meds & Prescriptions Reported Meds & Active Scripts Active Reported Coq-10 (Coenzyme Q10 (Ubidecarenone)) 50 Mg Cap 100 Mg PO DAILY Xarelto (Rivaroxaban) 20 Mg Tab 20 Mg PO DAILY Triamterene-Hydrochlorothiazide 37.5-25 Mg Cap 1 Cap PO BID Preservision Areds (Multiple Vitamins W/ Minerals) 1 Tab 1 Tab PO DAILY Pravastatin 20 Mg Tab 20 Mg PO DAILY Once Daily (Multivitamin) 1 Each Tablet 1 Mg PO DAILY Metoprolol Succinate ER 24 HR (Metoprolol Succinate) 50 Mg Tab 50 Mg PO DAILY [place] (Hydrocodone-Acetaminophen) 7.5-325 mg Tab 1 Tab PO Q4H PRN Review of Systems General / Constitutional: No: Fever Eyes: No: Visual changes HENT: No: Headaches Cardiovascular: No: Chest Pain or Discomfort Respiratory: No: Shortness of Breath Gastrointestinal: No: Abdominal Pain Genitourinary: No: Dysuria Musculoskeletal: Positive: Edema, No: Pain Skin: No Rash Neurologic: No: Weakness Psychiatric: No: Depression Endocrine: No: Polydipsia Hematologic/Lymphatic: No: Easy Bruising Physical Exam Narrative GENERAL: Well-nourished, well-developed patient. SKIN: Focused skin assessment warm/dry. HEAD: Normocephalic. EYES: No scleral icterus. No injection or drainage. NECK: Supple, trachea midline. No JVD or lymphadenopathy. CARDIOVASCULAR: Regular rate and rhythm without murmurs, gallops, or rubs. RESPIRATORY: Breath sounds equal bilaterally. No accessory muscle use. GASTROINTESTINAL: Abdomen soft, non-tender, nondistended. MUSCULOSKELETAL: Patient has ecchymosis swelling left lower extremity. Mild increase in heat. No redness. Minimal tenderness on palpation. Good DP pulse. Negative Homans sign. BACK: Nontender without obvious deformity. No CVA tenderness. Neurologic exam normal. Data Data Last Documented VS Vital Signs Date Time Temp Pulse Resp B/P (MAP) Pulse Ox O2 Delivery O2 Flow Rate FiO2 11/20/16 14:36 11/20/16 12:09 97.5 87 18 92 Room Air Orders Orders Us Leg Venous Doppler (11/20/16 13:04) MDM Medical Decision Making Medical Screen Exam Complete: Yes Emergency Medical Condition: Yes Interpretation(s) 2:17 PM. Left leg Doppler study negative for DVT. Differential Diagnosis Differential diagnosis including lower extremity dependent edema, hematoma, DVT , Cellulitis. Narrative Course 75-year-old female with swelling left lower extremity status post cardiac ablation procedure and hematoma left groin. Most likely ecchymosis and dependent edema. Diagnosis Primary Impression: Traumatic ecchymosis of left lower leg Qualified Codes: S80.12XA - Contusion of left lower leg, initial encounter Patient Instructions: General Instructions Additional Instructions: Keep left leg elevated. Follow-up with personal physician. Return if worse. Med/Other Pt SpecificInfo: No Change to Meds Disposition: 01 DISCHARGE HOME Condition: Stable Kayden Joyce MD Nov 20, 2016 13:13
--- NOTE | 2016-11-20 14:04 | RADRPT ---
EXAM DATE/TIME: 11/20/2016 13:21 [facility] COMPARISON: No previous studies available for comparison. INDICATIONS : Left leg swelling. MEDICAL HISTORY : Hypertension. Aflutter. Prediabetes. Alcohol use. Skin cancer. SURGICAL HISTORY : Appendectomy. Skin cancer on nose removed. Rigt rotator cuff repair. ENCOUNTER: Initial ACUITY: 1 day PAIN SCORE: 2/10 LOCATION: Left leg. TECHNIQUE: Venous ultrasound of the leg was performed from the inguinal ligament to the proximal calf. Real-francisco javier e, color Doppler and spectral tracing, compression and augmentation techniques were used. FINDINGS: There is normal compressibility of the deep venous system from the inguinal region to the proximal ca lf. No echogenic clot is seen in the lumen of the common femoral, femoral, popliteal, and posterior tibial veins. There is a normal response of the venous system to proximal and distal augmentation an d respiration. There is a large complex fluid collection within the left groin/medial thigh measurin g 14.9 x 7.5 x 5.0 cm consistent with probable hematoma/seroma. No color-flow is identified within th is collection. CONCLUSION: 1. No evidence of deep venous thrombosis within the left lower extremity. 2. Large complex fluid collection within the left groin/medial thigh measuring 14.9 x 7.5 x 5.0 cm co nsistent with probable hematoma/seroma. No color-flow is identified within this collection. Juan Carlos Perla MD on November 20, 2016 at 14:00 Board Certified Radiologist. This report was verified electronically.
== END 2016-11-20 15:47 | disposition home or self-care (01) ==
LOC: NEPD 12:05
DX: I97.638 Postprocedural hematoma of a circulatory system organ or structure following other circulatory system procedure (principal); M79.89 Other specified soft tissue disorders; Y83.8 Other surgical procedures as the cause of abnormal reaction of the patient, or of later complication, without mention of misadventure at the time of the procedure
CPT/HCPCS: 93971; 99284

== ENCOUNTER 2017-08-12 07:27 | Day surgery (SDC) | payer MEDICARE ==
[~2017-08-12] VITALS: Ht 160 cm; Wt 75.0 kg
[~2017-08-12 07:27] MED LIST changes: -HYDR12.57 PO; +METO1TAB9 PO; -METO50TA11 PO
[2017-08-12 08:01] VITALS: BP 134/83; PULSE 88; RESP 18; TEMP 97.7; O2SAT 94
[2017-08-12] MEDS ORDERED: SODIUM CHLORIDE 0.9% 1000 ML IV SCH (09:00)
[2017-08-12] MEDS ORDERED: ceFAZolin 2 GM PREMIX 50 ML - implanted port/tunneled catheter insertion IV SCH (09:00)
[2017-08-12] MEDS ORDERED: CHLORHEXIDINE GLUCONATE 2 % 1 PACK (2 CLOTHS) TOPICAL SCH (09:00)
[2017-08-12] MEDS ORDERED: VANCOMYCIN 1000 MG/NS 250 ML - implanted port/tunneled catheter IV SCH ×2 (09:00)
[2017-08-12] MEDS ORDERED: POVIDONE IODINE 5% (ANTISEPSIS KIT) 4 APPLICATIONS EACH NARE SCH (09:00)
[2017-08-12] MEDS ORDERED: LIDOCAINE 1%/EPINEPHrine 1:100,000 SOLN 20 ML VIAL ONE (09:34)
[2017-08-12] MEDS ORDERED: MIDAZOLAM HCL 5 MG/5 ML VIAL ONE (09:58)
[2017-08-12] MEDS ORDERED: fentaNYL CITRATE 250 MCG/5 ML AMP ONE (09:58)
[2017-08-12 10:57] VITALS: BP 146/79; PULSE 88; RESP 18; TEMP 97.5; O2SAT 92
--- NOTE | 2017-08-12 10:59 | PD.RAD ---
Post Procedure Progress Note Pre Procedure Diagnosis: (1) Gynecologic malignancy Post Procedure Diagnosis: (1) Gynecologic malignancy Procedure Date: Aug 12, 2017 Supervising Radiologist: Arden Gallagher JR Proceduralist/Assist: Gianna Louis, RT(R)(), Adrian Alarcon RT(R) Anesthesia: Conscious Sedation Plan of Activity Patient to Unit: ROPU Patient Condition: Good See PACS Report for procedural detail/treatment Central Venous Access Device Procedure 1 Right Internal Jugular Infusaport Placement single lumen Irish: 8 Findings: Port in good position and functions well. OK to use. Plan F/U with IR or a physician in 10-14 days. Jr. Elliott,Arden Delgado MD Aug 12, 2017 10:59
[2017-08-12 11:12] VITALS: BP 137/72; PULSE 78; RESP 19; O2SAT 91
--- NOTE | 2017-08-12 11:23 | RADRPT ---
EXAM DATE: 08/12/2017 11:11 AM EDT AGE/SEX: 76 years / Female INDICATIONS: Patient presents with history of adenocarcinoma in need of port placement for chemother apy. CLINICAL DATA: This is the patient's initial encounter. Patient reports that signs and symptoms have been present for 4 - 6 months and indicates a pain score of 0/10. MEDICAL/SURGICAL HISTORY: Arthritis. Diabetes mellitus type II. Atrial fibrillation. Cancer (M elanoma).Diverticulosis. Hemorrhoids. High Cholesterol. HTN Pneumonia. Omental Tumor. Adenocarcinoma. Appendectomy. Tonsillectomy. Heart ablation. Colonoscopy. Melanoma removal. COMPARISON: No prior exams available for comparison. FLUORO TIME (min): 0.46 IMAGE SERIES: 3 SEDATION TIME (min): 30 MEDICATION(S): 3.5mg midazolam (Versed) IV 175mcg fentanyl (Sublimaze) IV Prophylactic antibiotics were administered with appropriate pre-procedure timing. Vancomycin within 2 hrs of procedure, Ancef (or alternative) within 1 hr of procedure. DEVICE(S): Right 8fr Xcela Plus Port . . PROCEDURE : 1. Continuous pulse oximetry and EKG monitoring. 2. Intravenous conscious sedation. 3. Ultrasound guidance for venous access. 4. Fluoroscopic guided implantable central venous port placement. The patient was placed supine. The neck was prepped in sterile fashion. Full sterile technique was u sed, including cap, mask, sterile gloves and gown, and a large sterile sheet. Hand hygiene and 2% ch lorhexidine Betadine was utilized per protocol for cutaneous antisepsis with appropriate dry time for site. Sterile gel and sterile probe cover were utilized for ultrasound guidance. The skin and sub cutaneous tissues were infiltrated with local anesthetic solution. Under direct ultrasound guidance, central venous access was accomplished in the targeted vessel. The ultrasound images depicting access guidance were stored and saved to PACS for permanent record. A s ubcutaneous pocket was created using blunt dissection. The port was introduced to the pocket. The c atheter tubing was fed through a subcutaneous tunnel to the venotomy site. The catheter tubing was c ut to a suitable length and then was introduced through a valved Peel-Away sheath and positioned with catheter tubing tip at the cavo-atrial junction level. The pocket incision was closed with subcutic ular Vicryl suture. Steri-Strips were applied. The port was flushed and locked with heparin solutio n per protocol. Sterile dressing was applied to the site. The patient tolerated the procedure well. Conscious sedation was performed with the prescribed dosages and duration as above in the presence of an independent trained radiology nurse to assist in the monitoring of the patient. EKG and oximetry remained stable throughout the procedure. The patient tolerated the procedure well and there were no complications. The patient was sent to post anesthesia recovery in stable condition. CONCLUSION: 1. Uncomplicated ultrasound and fluoroscopic guided implanted central venous port catheter placement as described in detail above. An 8 [employer] port was placed. Electronically signed by: Arden Gallagher MD 08/12/2017 11:21 AM EDT
[2017-08-12 11:42] VITALS: BP 134/74; PULSE 98; RESP 17; O2SAT 91
[2017-08-12 12:12] VITALS: BP 124/69; PULSE 89; RESP 18; O2SAT 93
== END 2017-08-12 12:50 | disposition home or self-care (01) ==
LOC: HROP 07:27 → HRIP 07:33 → HROP 12:50
PROVIDERS: ATTEND Obstetrics & Gynecology Gynecologic Oncology
DX: Z45.2 Encounter for adjustment and management of vascular access device (principal); C48.2 Malignant neoplasm of peritoneum, unspecified; I10 Essential (primary) hypertension; I48.91 Unspecified atrial fibrillation; E11.9 Type 2 diabetes mellitus without complications; E78.00 Pure hypercholesterolemia, unspecified; M19.90 Unspecified osteoarthritis, unspecified site; Z85.820 Personal history of malignant melanoma of skin
CPT/HCPCS: 36561; 76937; 77001; 99152; 99153; C1788; J0690; J1642; J2250; J3010; J3370; J7030; J7050

== ENCOUNTER 2018-01-03 05:31 | Inpatient (IN) ==
[2018-01-03] MEDS ORDERED: Chlorhexidine Gluconate 2% 1 Pack (2 Cloths) TOPICAL ONE (06:14)
[2018-01-03] MEDS ORDERED: Metoprolol Tartrate 25 MG Tablet PO ONE (06:14)
[2018-01-03] MEDS ORDERED: Sodium Chloride 0.9% 2 ML Flush PRN IV.FLUSH (06:18)
[2018-01-03] MEDS ORDERED: Heparin - SQ 10,000 UNITS/ML Vial SQ SCH (06:30)
[2018-01-03] MEDS ORDERED: Famotidine PF Inj 20 MG/2 ML Vial ONE (06:47)
[2018-01-03] MEDS ORDERED: Sugammadex Inj 200 MG/2 ML Vial IV.PUSH ONE (06:47)
[2018-01-03] MEDS ORDERED: ceFAZolin Inj 1,000 MG in Sodium Chlor 0.9% Inj 100 ML IV.SIG SCH (07:00)
[2018-01-03] MEDS ORDERED: Sodium Chlor 0.9% Inj 500 ML IV.SIG SCH (07:00)
[2018-01-03] MEDS ORDERED: Artificial Tears Opth Oint 3.5 GM Tube ONE (07:08)
[2018-01-03] MEDS ORDERED: Phenylephrine/NS 1000 MCG/10ML Syringe IV.PUSH ONE (07:31)
[2018-01-03] MEDS ORDERED: Normosol-R pH 7.4 Inj 1,000 ML IV.CONT ONE (07:31)
[2018-01-03] MEDS ORDERED: Ketorolac Inj 30 MG/ML (IVP) Vial IV.PUSH ONE (07:31)
[2018-01-03] MEDS ORDERED: Sodium Chloride 0.9% 2 ML Flush BID IV.FLUSH SCH (09:00)
[2018-01-03] MEDS ORDERED: Lidocaine 1%/Epinephrine 1:100,000 Inj 20 ML Vial INFILTRATN ONE (09:51)
[2018-01-03] MEDS ORDERED: Methylene Blue Inj 100 MG/10 ML Vial IV.PUSH ONE (09:53)
[2018-01-03] MEDS ORDERED: Dextrose 50% in Water 50 ML Vial IV.PUSH PRN (13:25)
[2018-01-03] MEDS ORDERED: fentaNYL Citrate Inj 100 MCG/2 ML Ampul ONE (13:36)
[2018-01-03] MEDS ORDERED: *Meperidine Inj 25 MG/ML Vial PERIprocedural Use ONLY ONE (13:53)
[2018-01-03] MEDS: KCL 20 mEq/D5W/NaCl 0.45% Inj 1,000 ML IV.CONT SCH ×2 (14:00→23:29)
[2018-01-03] MEDS: Ketorolac Inj 30 MG/ML (IVP) Vial IV.PUSH SCH ×2 (18:12→23:30)
[2018-01-04] MEDS: Ketorolac Inj 30 MG/ML (IVP) Vial IV.PUSH SCH (06:04)
[2018-01-04 06:43] LABS: Baso % (Auto) 0.3 % (0.0-2.0); Eos % (Auto) 0.1 % (0.0-4.0); Hemoglobin 11.2 gm/dL (11.6-15.3); Lymph # (Auto) 1.2 th/mm3 (1.0-4.8); Lymph % (Auto) 11.4 % (9.0-44.0); Mean Corpuscular HGB Conc 33.9 % (32.0-36.0); Mean Corpuscular Hemoglobin 36.7 pg (27.0-34.0); Mean Corpuscular Volume 108.4 fL (80.0-100.0); Mean Platelet Volume 7.3 fL (7.0-11.0); Mono # (Auto) 0.9 th/mm3 (0.0-0.9); Mono % (Auto) 8.6 % (0.0-8.0); Neut # (Auto) 8.1 th/mm3 (1.8-7.7); Neut % (Auto) 79.6 % (16.0-70.0); Platelet Count 157 th/mm3 (150-450); Red Blood Count 3.04 mil/mm3 (4.00-5.30); Red Cell Distribution Width 19.7 % (11.6-17.2); White Blood Count 10.2 th/mm3 (4.0-11.0)
[2018-01-04 07:08] LABS: Calcium 8.4 mg/dL (8.5-10.1); Carbon Dioxide 26.6 meq/L (21.0-32.0); Potassium 3.6 meq/L (3.5-5.1)
[2018-01-04] MEDS ORDERED: Vitamin B Complex/Vitamin C Tablet PO SCH (09:00)
[2018-01-04] MEDS ORDERED: Metoclopramide 10 MG Tablet PO SCH (09:00)
--- NOTE | 2018-01-04 11:37 | MD ---
cc: Roxana Ochoa MD,Lior Smith MD, DO DATE OF DISCHARGE: 01/04/2018 PROCEDURE: 01/03/2018: Robotic-assisted laparoscopic hysterectomy, bilateral salpingo-oophorectomy, omentectomy with cytoreduction of ovarian cancer, extensive lysis of adhesions. HOSPITAL COURSE: She did well in her early postoperative period. Adequate pain control, hemodynamically stable. Ins and outs of 2800/800. Holly catheter removed pending voiding. Labs show an H and H of 11.2 and 33. Electrolytes: Potassium 3.6, BUN and creatinine 14 and 0.84. PHYSICAL EXAMINATION: VITAL SIGNS: Afebrile. Pulse: Regular controlled rate 69-72, respirations 18-20, blood pressure 114-119/67-75, O2 saturations greater than or equal to 97%. GENERAL: Alert and oriented x3. LUNGS: Clear. Mild basilar rales. CARDIOVASCULAR: Has a regular controlled rate. ABDOMEN: Soft. Incisions are clean and dry. GYNECOLOGIC: No bleeding. EXTREMITIES: Nontender; SCDs intact. ASSESSMENT: Postoperative day number 1, doing well the early postoperative period. Findings at the time of surgery and steps were reviewed; activities and restrictions were discussed. Questions were asked and answered. She expressed good understanding. PLAN: Anticipate she will meet criteria for discharge to home today. She is to resume prior medications, will have a prescription for Percocet. With respect to her blood thinner, I think she can restart her Xarelto tomorrow. There is fairly widespread rough peritoneal surfaces and oozing at the time of surgery; such that there was some risk of restarting any anticoagulation straightaway, but I think with her stable hemodynamic stability and good hemoglobin and hematocrit, she should be able to restart her Xarelto tomorrow. She is to contact our office to schedule a followup in 2 weeks or to contact our office should she have any questions or problems between now and the time of scheduled followup. MD DOUGLAS Catalan/kameron , 08:20 AM , 08:26 AM
--- NOTE | 2018-01-06 14:00 | MP ---
cc: Roxana Ochoa MD, Gregory P DO Decarli, Antonio MD Lawson, Brittany NP DATE OF OPERATION: 01/03/2018 PREOPERATIVE DIAGNOSES: 1. 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 2. Status post neoadjuvant Taxol and carboplatin chemotherapy. POSTOPERATIVE DIAGNOSES: 1. 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 2. Status post neoadjuvant Taxol and carboplatin chemotherapy. 3. Extensive pelvic adhesions. PROCEDURE PERFORMED: Robotic-assisted laparoscopic hysterectomy, bilateral salpingo-oophorectomy, omentectomy (with cytoreduction of intraperitoneal disease), right ureterolysis, extensive lysis of adhesions. SURGEON: Roxana Ochoa MD PHARMACOLOGY TEACHER: Baldemar technical assistant. ANESTHESIA: General endotracheal anesthesia. 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 We recommended neoadjuvant chemotherapy, which she has taken and tolerated. Her CA-125 clinical exam and symptomatology have all improved with neoadjuvant chemotherapy. She was recently seen and reevaluated and is seen again today in the preop holding area where the findings and plan of care were reviewed. Questions were asked and answered. She expressed good understanding. We would like to move forward with surgical evaluation. FINDINGS: Upon entry into the peritoneal cavity, first the transverse colon and omentum with tumor stuck to the anterior abdominal wall. A number of the adhesions are filmy and have the appearance of tissue that has responded to chemotherapy; areas that used to be replaced with tumor. There is still a fairly large area of tumor in the infracolic omentum and it extends to the lower portion of the gastrocolic ligament. There are a lot of areas in the peritoneal cavity that have inflammatory changes or subtle adhesions that seem to be consistent with multifocal areas where tumor has responded to chemotherapy. In the pelvis, all the structures are fixed and partially or completely retro-peritonealized as the uterus and adnexa are not readily distinguishable initially because of all of the adhesions to adjacent structures and with overlying peritoneum. Once the anatomy was restored and evaluated, the ovaries are slightly prominent but prominent, but did not have any overt gross tumor; however, again, there is a lot of adhesions and inflammatory changes as far as small peritoneal implants diffusely in the pelvis and the abdomen, no greater than perhaps 1 mm - 2 mm. The ovaries are fixed to the adjacent pelvic sidewall, partially retro-peritonealized. The colon and draped overlying the adnexal structures and the colon is adherent to the posterior wall of the uterus and bladder and bladder peritoneum are adherent to the uterine fundus. The right ovary is fixed to the pelvic sidewall and the ureter densely adherent to the ureter attached in the posterior lateral aspect. At the conclusion of the case, all significant grossly detectable tumor had been resected; all that remained where the fine peritoneal implants and inflammatory changes suggesting prior tumor that had responded to chemotherapy. STATEMENT OF COMPLEXITY/MODIFIER: Complexity of this case was increased due to extensive intra-abdominal and especially pelvic adhesions. It is estimated that an additional 2 hours of surgical time were required to take down the adhesions to gain safe access into the peritoneal cavity, to gain safe access into the pelvis, to identify and restore normal anatomy and complete surgical objectives. Modifiers should be applied accordingly. DESCRIPTION OF PROCEDURE: She was taken to the operating room and placed in dorsal lithotomy position after general endotracheal anesthesia was administered. A timeout was undertaken. She was identified by site recognition and hospital ID bracelet and the proposed procedure was reviewed and confirmed. She was carefully positioned in padded Myke stirrups. Her arms were padded and secured to the sides. She was further secured to the operating table with egg crate padding and tape in a cross chest over the shoulder fashion. All sites noted to be properly aligned with no malalignment or pressure points. She was prepped in sterile fashion and draped below the waist, placed in high lithotomy position. The cervix was grasped. The uterine cavity sounded only to 6 cm. Cervix was dilated and a standard VCare manipulator was inserted and secured in usual fashion. Holly catheter placed in the bladder. She was returned to low lithotomy position. Change of sterile gloves was undertaken. We completed draping in anticipation of laparoscopy; confirmed that an orogastric tube was in the stomach on suction. With manual elevation of the abdominal wall and direct laparoscopic visualization, a 5 mm cannula was introduced into the left upper quadrant and entered the peritoneal cavity in an atraumatic fashion. Carbon dioxide gas was insufflated, but immediately adjacent to this entry site, were adhesions where the omentum and tumor were adherent to the anterior abdominal wall. An 8 mm cannula was placed in the right upper quadrant and in the left lateral quadrant and from these access vantage points, sharp dissection was used to take down the adhesions from the anterior abdominal wall to mobilize the omentum and transverse colon from its adherence to the anterior abdominal wall, after which a 12 mm cannula was placed in the midline above the umbilicus and the original 5 mm was exchanged for an 8 mm cannula. She was placed in Trendelenburg position. The anatomy was surveyed with findings as described above. The small bowel was folded back on its mesenteric root to the extent possible and 3 Ray-Marquita sponges were placed in the peritoneal cavity. The robotic system brought into the operative field and attached in the usual fashion. Monopolar scissors, fenestrated bipolar forceps and ProGrasp manipulators placed in arms #1, 2, and 3 respectively and I took my place at the surgeon's console. Lysis of adhesions was initiated to mobilize the colon from its attachment along the left pelvic sidewall and to free up the adhesions in the region of the ileocecal him at the right pelvic brim. Retroperitoneal dissection was initiated on the right and the right round ligament was able to be identified; was isolated, cauterized, and transected. The posterior peritoneum was continued. The ureter was distorted and was adherent where the ovary was partially retro-peritonealized against the right pelvic sidewall. A right ureterolysis was carried out with sharp dissection to dissect the ureter free from its attachments and to help mobilize the ovary away from the pelvic sidewall with continued dissection until the ureter could be retracted laterally away from the adnexa. A window in the peritoneum between the gonadal vessels and the ureter was identified. The peritoneal incision was carried proximally, elevating the gonadal vessels. They were isolated above the pelvic brim where they were cauterized and transected. Rectovaginal space was opened with sharp dissection to free the colon from its attachment to the posterior wall of the uterus and cervix. Sharp dissection and blunt dissection was carried out incrementally until the colon was freed from its attachments and the colovaginal space had been satisfactorily opened. The posterior peritoneum was further dissected off the right side of the uterus and cervix and then its adhesions were taken down from the bladder peritoneum and then the peritoneum was isolated and the vesicouterine peritoneum was dissected off the lower uterine segment and cervix on the right side and the uterine vessels were skeletonized on the right. The uterine vessels were isolated, cauterized, and transected as were the cardinal, paracervical and uterosacral ligaments, thereby freeing the attachments along the right side of the uterus and cervix. Attention was directed toward the left side where further lysis of adhesions was carried out. Retroperitoneal dissection was extended. The left ureter was identified. The left infundibulopelvic ligament was isolated. The pericolonic fat was further removed from the gonadal vessels as they were isolated to the pelvic brim where they were cauterized and transected. Sharp dissection was used to dissect the ovary free and elevated, except for its attachments via the uteroovarian ligament, posterior peritoneum opened along the left side of the uterus and cervix and the left vesicouterine peritoneum was dissected off the lower uterine segment and cervix, allowing exposure of the uterine vessels. The uterine vessels were skeletonized, cauterized and transected as were the cardinal, paracervical and uterosacral ligaments. It is noted that posterior peritoneal flap as well as the peritoneal flap along the bladder were included in the hysterectomy specimen as it contained what looked like a small peritoneal implants of tumor. Colpotomy was performed the cervix from the upper vagina and the specimen was withdrawn including uterus, cervix, tubes and ovaries and a pneumo-occluder balloon was placed in the vagina to maintain pneumoperitoneum. Attention was then directed toward the abdomen. The distal edge of the omentum with tumor were pulled toward the pelvis. Dissection was started near the hepatic flexure where normal appearing omentum was isolated from the transverse colon. Nonvascular attachments were taken down with sharp dissection. Vascular attachments were isolated, cauterized with bipolar cautery and transected. This dissection was continued from right to left, along the transverse colon. The tumor extended into the lower half of the gastrocolic ligament. So as the tumor and peritoneum were taken off the transverse colon, the vascular attachments of the gastrocolic ligament were isolated, cauterized, and transected in a stepwise fashion. Dissection was continued in this fashion along the transverse colon toward the splenic flexure until a final sharp dissection was able to remove the remaining grossly detectable tumor from the omentum and gastrocolic ligament and the specimen was placed in the pelvis for later retrieval. There was some bleeding at the edge of the omentum, initially secured with cautery, but with some continued bleeding, it required a suture ligature with interrupted 3-0 Vicryl suture and tied via instrument tie. The needle was then cut and removed. This area was irrigated and it was noted to be completely hemostatic, but to assist in continued hemostasis, Surgicel hemostatic product was placed over this dissection bed. Attention was redirected to the pelvis where an EndoCatch bag was introduced transvaginally to capture the omentum and omental tumor, which were able to be delivered transvaginally. Next, each of the 3 Ray-Marquita sponges were placed in the peritoneal cavity were grasped and removed transvaginally after inspection visually and palpably confirmed there were no other areas of tumor to be resected. There were no appreciably enlarged retroperitoneal lymph nodes and it was felt that all surgical objectives of cytoreduction had being accomplished. After each of the 3 Ray-Marquita sponges were removed. They were inspected and noted to be removed in their entirety. Preliminary counts were correct. There were no remaining foreign objects in the peritoneal cavity. Instruments 1 and 3 were exchanged for needle drivers as a 0-Vicryl suture was introduced. The vaginal cuff was closed starting at the left corner; full-thickness closure, incorporating the edge of the uterosacral ligament and edge of the peritoneum, tied via instrument tie. The suture was held on countertraction as a running continuous full thickness closure was carried across the vaginal cuff to the contralateral corner where it was similarly secured, fixed and tied. The needle was cut and removed. The pelvis was thoroughly irrigated. Small bleeders were rendered hemostatic with bipolar cautery. The integrity of the bladder was confirmed by filling the bladder with saline dyed with methylene blue; it distended nicely under pressure. There were no areas of blue, no thinning of the bladder; certainly no extravasation of dye and there was a good margin between the bladder edge and the vaginal cuff suture line. There was good peristalsis of ureters bilaterally and the bladder was drained. It was felt that all surgical objectives had been completed, such that the robotic instruments were removed and the robotic system was disengaged from the operative field. I reentered the bedside under sterile condition where the 12 mm fascial defect was closed with interrupted 0-Vicryl sutures using a needle fascial closure apparatus. They were tied securely which rendered the fascia completely airtight and hemostatic. The remaining cannulas were withdrawn. Carbon dioxide gas was removed from the peritoneal cavity; 3-0 Vicryl subcutaneous, 3-0 Vicryl subcuticular and Steri-Strips were used to close these incisions. She was returned to dorsal lithotomy position where pelvic exam confirmed the vaginal cuff was well supported. There were no remaining foreign objects in the vagina. Preliminary and final counts were correct. The superficial irritation at the introitus was rendered hemostatic with topical silver nitrate and [id number] 3-0 Vicryl sutures on the perineum. She was returned to dorsal supine position and was pending reversal of anesthesia when I left the operating room to precede her to the postanesthesia care unit. MD DOUGLAS Catalan/kameron , 12:39 PM , 01:04 PM
== END 2018-01-04 11:18 | disposition home or self-care (01) ==
LOC: HSDI 05:31 → HCIN 15:30
PROVIDERS: ADMIT Obstetrics & Gynecology Gynecologic Oncology; ATTEND Obstetrics & Gynecology Gynecologic Oncology